=== PATIENT | female | born 1980 | race Caucasian/White ===

== ENCOUNTER 2022-02-14 09:56 | Outpatient (CLI) | payer BC, SELFPAY ==
[2022-02-14 13:39] LABS: Chloride* 105 mmol/L (96-114); Potassium* 4.3 mmol/L (3.6-5.1); Sodium* 139 mmol/L (135-149)
[2022-02-14 13:42] LABS: Blood Urea Nitrogen* 19 mg/dL (5-24); Carbon Dioxide* 28 mmol/L (20-32); Cholesterol* 222 mg/dL (90-199); Creatinine* 0.8 mg/dL (0.5-1.5); Estimated Glomerular Filt Rate 94 ml/min; Glucose* 102 mg/dL (60-115); Triglycerides* 48 mg/dL (40-149)
[2022-02-14 13:43] LABS: Calcium* 9.5 mg/dL (8.4-10.6)
[2022-02-14 15:58] LABS: HDL Cholesterol* 131 mg/dL (>=50)
[2022-02-14 15:59] LABS: LDL Cholesterol Calculated 81 mg/dL (<100)
== END 2022-02-14 09:57 | disposition home or self-care (01) ==
PROVIDERS: Visit Provider Obstetrics & Gynecology
DX: Z01.419 Encounter for gynecological examination (general) (routine) without abnormal findings (principal); Z12.31 Encounter for screening mammogram for malignant neoplasm of breast; Z13.6 Encounter for screening for cardiovascular disorders; Z13.29 Encounter for screening for other suspected endocrine disorder
CPT/HCPCS: 77063; 77067; 80048; 80061; 84443

== ENCOUNTER 2022-08-25 16:44 | Outpatient (CLI) | payer BC, SELFPAY ==
--- NOTE | 2022-08-25 17:00 | CRLHL7_ITS ---
For Patients: As a result of the Century Cures Act, medical imaging exams and procedure reports are released immediately into your electronic medical record. You may view this report before your referring provider. If you have questions, please contact your health care provider. INDICATION: Abnormal uterine bleeding COMPARISON: none TECHNIQUE: 2D sparrow scale and color Doppler images were acquired of the pelvis using a transabdominal and transvaginal approach. FINDINGS: Sonographic images demonstrate a normal size and smooth outer contour of the uterus. Uterus measures 9.2 cm in length by 4.5 cm in AP diameter by 5.2 cm in transverse dimension. No uterine fibroid. Incidental cervical nabothian cysts. The endometrial lining measures 5 mm in composite thickness. The right ovary measures 3.3 x 1.5 x 1.3 cm in size and the left ovary measures 3.8 x 2.9 x 3.7 cm. Simple left ovarian cyst is present measuring 3.4 x 2.9 x 3.0 cm. The ovaries demonstrate normal arterial and venous blood flow on color Doppler analysis. There are no suspicious fluid collections within the cul-de-sac. IMPRESSION: Endometrial thickness 5 millimeters. Possible adenomyosis may be present. Simple left ovarian cyst measuring 3.4 cm. Dictated by Eric Valle MD @ 08/26/2022 11:14:38 AM (Electronically Signed)
== END 2022-08-25 16:45 | disposition home or self-care (01) ==
LOC: US 16:45
PROVIDERS: PCP Obstetrics & Gynecology; Visit Provider Obstetrics & Gynecology
DX: N93.9 Abnormal uterine and vaginal bleeding, unspecified (principal); R93.89 Abnormal findings on diagnostic imaging of other specified body structures; N83.202 Unspecified ovarian cyst, left side
CPT/HCPCS: 76830

== ENCOUNTER 2022-12-11 06:59 | Day surgery (SDC) | payer BC, SELFPAY ==
[2022-12-11 07:13] VITALS: BMI 23.9
[2022-12-11 07:29] LABS: Ur HCG Qualitative* Negative (Negative)
[2022-12-11 07:37] VITALS: BP 95/58; PULSE 56; RESP 16; TEMP 37.1; O2SAT 97
[2022-12-11] MEDS: SODIUM CHLORIDE 0.9 % (FLUSH) 10 ML SYRINGE IVF (07:40)
[2022-12-11] MEDS: LACTATED RINGERS 1000 ML 1,000 ML 100 ML IV (07:41)
[2022-12-11 07:44] LABS: Hemoglobin* 13.5 gm/dL (12.0-16.0)
--- NOTE | 2022-12-11 08:41 | W.ANESCHARGE ---
Anesthesia Charges Start Date/Time Anesthesia Start Date: 12/11/22 Anesthesia Start Time: 08:50 Stop Date/Time Anesthesia Stop Date: 12/11/22 Anesthesia Stop Time: 09:28
[2022-12-11 09:25] VITALS: BP 97/48; PULSE 58; RESP 16; TEMP 36.3; O2SAT 96
--- NOTE | 2022-12-11 09:28 | W.ANESCHARGE ---
Anesthesia Charges Start Date/Time Anesthesia Start Date: 12/11/22 Anesthesia Start Time: 08:50 Stop Date/Time Anesthesia Stop Date: 12/11/22 Anesthesia Stop Time: 09:28
[2022-12-11 09:30] VITALS: BP 100/49; PULSE 64; RESP 16; O2SAT 99
[2022-12-11 09:45] VITALS: BP 99/53; PULSE 55; RESP 16; O2SAT 98
--- NOTE | 2022-12-11 09:46 | W.PM.GYNPROC ---
Procedure Note Time Seen by Provider: 09:00 Date of procedure: 12/11/22 Procedure: Preoperative diagnosis: Zeenat is a 41 year-old with abnormal uterine bleeding. Postoperative diagnosis: Same Procedure: Hysteroscopy, dilation and curettage, polypectomy Anesthesia: Conscious sedation with paracervical block. Surgeon: Diane Rosales MD Estimated blood loss: <5 cc UOP: 20 cc Specimen: Endometrial curettings to pathology. Findings: Exam under anesthesia: Cervix palpates normal. Uterus: mid position, 6 week size, mobile, without nodularity/masses palpable. Adnexa were without fullness or nodularity. On hysteroscopy: Possible submucosal polyp on right posterior uterine wall, otherwise normal uterine cavity, and bilateral ostia. Procedure: Zeenat was taken to the operating where conscious sedation was found to be adequate. She was placed in the dorsal lithotomy position. An exam under anesthesia was performed with findings stated above. She was then prepped and draped in normal sterile manner. Bladder was emptied with a red rubber. A bivalve metal speculum was placed in the vaginal canal. The cervix and vaginal canal appear normal. A paracervical block was placed using 1% Lidocaine with epi: 5 mL injected at the 4 and 8 o'clock positions on the cervix. The anterior lip of the cervix was then grasped with a long Allis clamp. The cervix was dilated to Hegar 6. The uterus sounded to 9 cm. The hysteroscope advanced into the uterus and a diagnostic hysteroscopy was performed with findings stated above. Normal saline was used as the insufflation medium. Curettage was performed with the soft tissue shaver. The hysteroscope was then removed. A sharp curettage was performed until a gritty texture was noted. The hysteroscope was then readvanced into the uterus and documented a normal appearing uterine cavity. Fluid deficit at the end of the procedure 135 mL. The hysteroscope and Allis clamp were removed from the uterus and cervix. Excellent hemostasis noted. Nothing was used for hemostasis. The patient tolerated the procedure well. Sponge, lap and instruments counts were correct at the end of the procedure. The patient was awakened from anesthesia and taken to the recovery area in stable condition.
[2022-12-11 10:00] VITALS: BP 104/57; PULSE 55; RESP 16; O2SAT 99
== END 2022-12-11 10:30 | disposition home or self-care (01) ==
PROVIDERS: Visit Provider Obstetrics & Gynecology
PROC: 0UDB8ZZ Extraction of Endometrium, Via Natural or Artificial Opening Endoscopic (ICD-10-PCS; CPT 58558; principal; 2022-12-11 08:30)
DX: N93.8 Other specified abnormal uterine and vaginal bleeding (principal); N84.0 Polyp of corpus uteri
CPT/HCPCS: 58558; 00952; 36415; 81025; 85018; 88305; J1100; J1885; J2250; J2405; J2704; J3010; J7120

== ENCOUNTER 2023-03-19 15:37 | Outpatient (CLI) | payer BC, SELFPAY ==
--- NOTE | 2023-03-19 15:40 | CRLHL7_ITS ---
For Patients: As a result of the Century Cures Act, medical imaging exams and procedure reports are released immediately into your electronic medical record. You may view this report before your referring provider. If you have questions, please contact your health care provider. BILATERAL SCREENING MAMMOGRAM WITH COMPUTER-AIDED DETECTION AND TOMOSYNTHESIS TECHNIQUE: CC and MLO views were obtained. These mammographic images have been obtained using full-field digital technique. These mammographic images were interpreted with the benefit of computer-aided detection. Breast Tomosynthesis was used in this interpretation. COMPARISON FILM: 02/14/22, 02/08/21, 01/20/20. FINDINGS: The breasts are heterogeneously dense, which may obscure small masses IMPRESSION: There is no radiographic evidence for malignancy. ASSESSMENT: BI-RADS Category 1: Negative RECOMMENDATION: Routine screening mammogram in 1 year. A lay language report of this examination will be provided to the patient. Eric Valle M.D. Diagnostic Radiologist [email or web address] ANNALISE/Dictated by: Eric Valle MD @ 03/20/2023 12:37:00 PM (Electronically Signed)
== END 2023-03-19 15:38 | disposition home or self-care (01) ==
PROVIDERS: Visit Provider Physician Assistant
DX: Z12.31 Encounter for screening mammogram for malignant neoplasm of breast (principal); R92.2 Inconclusive mammogram
CPT/HCPCS: 77063; 77067

== ENCOUNTER 2024-04-22 15:03 | Outpatient (CLI) | payer BC, SELFPAY ==
--- NOTE | 2024-04-22 15:20 | CRLHL7_ITS ---
For Patients: As a result of the Century Cures Act, medical imaging exams and procedure reports are released immediately into your electronic medical record. You may view this report before your referring provider. If you have questions, please contact your health care provider. BILATERAL DIGITAL SCREENING MAMMOGRAM WITH COMPUTER-AIDED DETECTION AND TOMOSYNTHESIS CLINICAL HISTORY:: Routine screening exam. COMPARISON: 03/19/23, 02/14/22, 02/08/21. TECHNIQUE: Digital mammogram in CC and MLO projections including computer-aided detection (CAD). Tomosynthesis was used in this interpretation. BREAST COMPOSITION: The breasts are heterogeneously dense, which may obscure small masses. FINDINGS: RIGHT Breast: No suspicious findings LEFT Breast: Focal asymmetric density within the retroareolar plane MLO view 3 cm from the nipple. IMPRESSION: LEFT breast asymmetry/mass. RECOMMENDATIONS: Additional mammographic views of the LEFT breast including 3D spot-compression MLO and 3D true lateral. LEFT breast ultrasound may also be required. [facility] will contact the patient. A lay language report of this examination will be provided to the patient. BI-RADS Category 0: Incomplete: Need Additional Imaging Evaluation Dictated by Eric Valle MD @ 04/25/2024 10:09:58 AM/mary ANNALISE/Dictated by: Eric Valle MD @ 04/25/2024 10:10:00 AM (Electronically Signed)
== END 2024-04-22 15:04 | disposition home or self-care (01) ==
LOC: MAMMO 15:04
PROVIDERS: Visit Provider Physician Assistant
DX: Z12.31 Encounter for screening mammogram for malignant neoplasm of breast (principal); N63.20 Unspecified lump in the left breast, unspecified quadrant
CPT/HCPCS: 77063; 77067

== ENCOUNTER 2024-05-16 07:26 | Outpatient (CLI) | payer BC, SELFPAY ==
--- NOTE | 2024-05-16 07:45 | CRLHL7_ITS ---
For Patients: As a result of the Cures Act, medical imaging exams and procedure reports are released immediately into your electronic medical record. You may view this report before your referring provider. If you have questions, please contact your health care provider. DIGITAL DIAGNOSTIC LEFT MAMMOGRAM USING TOMOSYNTHESIS AND COMPUTER-AIDED DETECTION LEFT BREAST ULTRASOUND CLINICAL HISTORY: LEFT breast mass/asymmetry. COMPARISON: 04/22/2024. TECHNIQUE: Digital LEFT mammogram in two projections. Tomosynthesis and CAD were used in this interpretation. Real-time ultrasound imaging of LEFT breast with imaging documentation. Scanning was performed by both the technologist and the radiologist. BREAST COMPOSITION: The breasts are heterogeneously dense, which may obscure small masses. FINDINGS: 3D spot compression MLO and 3D true lateral LEFT breast mammogram images submitted. Decreased conspicuity of previously noted asymmetric density. No architectural distortion. No suspicious calcifications. Targeted LEFT breast ultrasound performed in the upper outer quadrant 1-2 o`clock 3 cm from the nipple. Normal fibroglandular tissue is present. No fibrocystic change or mass. IMPRESSION: No suspicious findings. Normal fibroglandular tissue. No evidence of malignancy. RECOMMENDATIONS: Routine screening mammography. A lay language report of this examination will be provided to the patient. BI-RADS Category 2: Benign Dictated by Eric Valle MD @ 05/16/2024 8:54:46 AM jj/Dictated by: Eric Valle MD @ 05/16/2024 8:54:00 AM (Electronically Signed)
--- NOTE | 2024-05-16 08:15 | CRLHL7_ITS ---
For Patients: As a result of the Cures Act, medical imaging exams and procedure reports are released immediately into your electronic medical record. You may view this report before your referring provider. If you have questions, please contact your health care provider. SEE DIGITAL DIAGNOSTIC LEFT MAMMOGRAM PERFORMED SAME DAY CRL:suki cohn/Dictated by: Eric Valle MD @ 05/16/2024 8:54:00 AM (Electronically Signed)
== END 2024-05-16 07:27 | disposition home or self-care (01) ==
PROVIDERS: Visit Provider Obstetrics & Gynecology
DX: N63.20 Unspecified lump in the left breast, unspecified quadrant (principal); R92.8 Other abnormal and inconclusive findings on diagnostic imaging of breast
CPT/HCPCS: 76642; 77065; G0279

== ENCOUNTER 2024-09-12 11:16 | Outpatient (CLI) | payer BC, SELFPAY ==
[2024-09-16 17:09] LABS: HPV Source Cervix; HPV, High Risk by TMA Not Detected
== END 2024-09-12 11:17 | disposition home or self-care (01) ==
PROVIDERS: Visit Provider Physician Assistant
DX: N92.0 Excessive and frequent menstruation with regular cycle (principal); Z12.4 Encounter for screening for malignant neoplasm of cervix; Z11.51 Encounter for screening for human papillomavirus (HPV)
CPT/HCPCS: 84443; 87624; 87625; 88141; 88142

== ENCOUNTER 2024-09-23 14:35 | Outpatient (CLI) | payer BC, SELFPAY ==
--- NOTE | 2024-09-23 15:00 | CRLHL7_ITS ---
For Patients: As a result of the Century Cures Act, medical imaging exams and procedure reports are released immediately into your electronic medical record. You may view this report before your referring provider. If you have questions, please contact your health care provider. INDICATION: Menorrhagia COMPARISON: 08/25/2022 TECHNIQUE: 2D sparrow-scale and color Doppler images were acquired of the pelvis using a transabdominal and transvaginal approach. Transvaginal imaging performed to better visualize the endometrial stripe and ovaries. FINDINGS: Sonographic images demonstrate a normal size and smooth outer contour of the uterus. Uterus measures 8.6 cm in length by 4.9 cm in AP diameter by 5.8 cm in transverse dimension. The myometrium has a normal uniform echotexture. The endometrial lining measures 8.5 mm in composite thickness. The right ovary measures 2.9 x 1.3 x 1.4 cm in size and the left ovary measures 3.6 x 1.4 x 1.4 cm. The ovaries demonstrate normal arterial and venous blood flow on color Doppler analysis. There are no suspicious fluid collections within the cul-de-sac. Complex left ovarian cyst is present without internal vascularity which measures 1.3 x 1.4 x 1.2 cm. IMPRESSION: Endometrial thickness 8.5 millimeters. No endometrial fluid. No uterine fibroid. Incidental hemorrhagic left ovarian cyst measures 1.4 cm. Dictated by Eric Valle MD @ 09/23/2024 4:17:07 PM (Electronically Signed)
== END 2024-09-23 14:36 | disposition home or self-care (01) ==
LOC: US 14:35
PROVIDERS: Visit Provider Physician Assistant
DX: N92.0 Excessive and frequent menstruation with regular cycle (principal); R93.89 Abnormal findings on diagnostic imaging of other specified body structures; N83.202 Unspecified ovarian cyst, left side
CPT/HCPCS: 76830; 76856

== ENCOUNTER 2025-02-23 08:29 | Outpatient (CLI) | payer BC, SELFPAY ==
--- NOTE | 2025-02-23 09:44 | P.ANES_ITS ---
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
--- NOTE | 2025-02-23 09:44 | W.ANESCHARGE ---
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
== END 2025-02-23 08:30 | disposition home or self-care (01) ==
LOC: OP CLINIC 08:31
PROVIDERS: PCP Physician Assistant; Visit Provider Internal Medicine
DX: Z12.11 Encounter for screening for malignant neoplasm of colon (principal); D12.5 Benign neoplasm of sigmoid colon
CPT/HCPCS: 00811; 00812; 45380; 88305; J2704

== ENCOUNTER 2025-04-25 15:30 | Outpatient (CLI) | payer BC, SELFPAY ==
--- NOTE | 2025-04-25 15:40 | CRLHL7_ITS ---
For Patients: As a result of the Century Cures Act, medical imaging exams and procedure reports are released immediately into your electronic medical record. You may view this report before your referring provider. If you have questions, please contact your health care provider. INDICATION: BILATERAL SCREENING MAMMOGRAM, ASYMPTOMATIC 44 Y/O FEMALE COMPARISON: 05/16/2024, 04/22/2024, 03/19/2023 TECHNIQUE: Digital mammogram in CC and MLO projections including computer-aided detection (CAD) and tomosynthesis. BREAST COMPOSITION: The breasts are heterogeneously dense, which may obscure small masses. FINDINGS: No suspicious findings. ASSESSMENT: BI-RADS 1 Negative RECOMMENDATION: Annual screening mammogram. A lay language report of this examination will be provided to the patient. Dictated by: Eric Valle MD @ 04/26/2025 10:39:58 (Electronically Signed)
== END 2025-04-25 15:31 | disposition home or self-care (01) ==
LOC: MAMMO 15:31
PROVIDERS: Visit Provider Physician Assistant
DX: Z12.31 Encounter for screening mammogram for malignant neoplasm of breast (principal); R92.333 Mammographic heterogeneous density, bilateral breasts
CPT/HCPCS: 77063; 77067